=== PATIENT | female | born 1945 | race Two or more races ===

== ENCOUNTER 2018-07-27 20:05 | Inpatient (IN) | payer MEDICARE, MEDICAID ==
[~2018-07-27] VITALS: Ht 154.9 cm; Wt 59.0 kg
[2018-07-27 21:09] LABS: BASOPHILS % 0.4 % (0.0-2.0); EOSINOPHILS % 0.6 % (0.0-5.0); HEMATOCRIT. 27.3 % (36.0-48.0); HEMOGLOBIN. 8.9 g/dL (12.0-16.0); LYMPHOCYTES % 31.7 % (20.0-50.0); MEAN CORPUSCULAR HEMOGLOBIN 23.8 pg (28.0-32.0); MEAN CORPUSCULAR VOLUME 73.2 fL (81.0-99.0); MEAN PLATELET VOLUME 9.1 fl (7.4-10.4); MONOCYTES % 7.9 % (2.0-8.0); NEUTROPHILS % 59.4 % (40.0-76.0); PLATELET 248 x1000/uL (130-400); RED BLOOD CELL COUNT 3.73 mill/uL (4.2-5.4); RED CELL DISTRIBUTION WIDTH 17.4 % (11.6-14.6)
[2018-07-27 21:13] LABS: CHLORIDE 102 mEq/L (98-107)
[2018-07-27 21:19] LABS: ETHANOL BLOOD < 10 mg/dL
[2018-07-27 21:21] LABS: D-DIMER 1.97 mg/L FEU (<0.50); INR 1.1; PARTIAL THROMBOPLASTIN TIME 25.5 sec (23.4-31.0); PROTHROMBIN TIME 11.2 sec (9.1-11.1)
[2018-07-27] MEDS ORDERED: CLONIDINE 0.2MG TABLET PO ONE (21:30)
[2018-07-27] MEDS ORDERED: LORAZEPAM 2MG/ML CPJ IV ONE (21:45)
[2018-07-28 01:00] LABS: CLARITY URINE CLEAR (CLEAR); COLOR URINE YELLOW (YELLOW); KETONES URINE NEGATIVE (NEGATIVE); OCCULT BLOOD URINE NEGATIVE (NEGATIVE); PROTEIN URINE TRACE (NEGATIVE); SPECIFIC GRAVITY URINE 1.009 (1.005-1.030)
[2018-07-28 01:01] LABS: LEUKOCYTE ESTERASE URINE TRACE (NEGATIVE); NITRITE URINE NEGATIVE (NEGATIVE); UROBILINOGEN URINE 0.2 E.U./dL (0.2-1.0)
[2018-07-28 01:23] LABS: *BENZODIAZEPINES SCREEN URINE NEGATIVE (NEGATIVE); *COCAINE SCREEN URINE NEGATIVE (NEGATIVE); CANNABINOID URINE SCREEN NEGATIVE (NEGATIVE); METHADONE URINE SCREEN NEGATIVE (NEGATIVE); OPIATES URINE SCREEN NEGATIVE (NEGATIVE); PHENCYCLIDINE URINE SCREEN NEGATIVE (NEGATIVE)
[2018-07-28 01:24] LABS: *AMPHETAMINES SCREEN URINE NEGATIVE (NEGATIVE); *BARBITURATES SCREEN URINE NEGATIVE (NEGATIVE)
[2018-07-28] MEDS ORDERED: IOHEXOL-350 100 ML BOTTLE ONE (03:40)
[2018-07-28] MEDS ORDERED: DEXTROSE 50% WATER 50ML SYRINGE IV PRN (03:45)
[2018-07-28] MEDS ORDERED: ACETAMINOPHEN 325MG TABLET PO PRN (03:45)
[2018-07-28] MEDS ORDERED: CLONIDINE 0.1MG TABLET PO PRN (03:45)
[2018-07-28] MEDS ORDERED: HYDRALAZINE 20MG/ML VIAL IV PRN (03:45)
[2018-07-28] MEDS ORDERED: MAGNESIUM/ALUMINUM HYDROXIDE/SIMETHICONE 30ML UDC PO PRN (03:45)
[2018-07-28] MEDS ORDERED: ONDANSETRON HCL 4MG/2ML INJ IV PRN (03:45)
[2018-07-28] MEDS ORDERED: SODIUM CHLORIDE 0.9% INJ 3ML FLUSH IVF SCH (06:00)
[2018-07-28] MEDS ORDERED: INSULIN LISPRO 100 UNITS/ML SUBCUT SCH (08:20)
[2018-07-28 09:00] VITALS: BP 146/59
[2018-07-28] MEDS ORDERED: BLOOD SUGAR DIAGNOSTIC STRIP TEST SCH (09:00)
== END 2018-07-28 11:05 | disposition left against medical advice (07) | DRG 203 ==
LOC: ER 20:05 → 5WST 22:12 → EDBEDREQ 22:18 → EDBEDREQTM 22:18 → ENRESERV 07-28 07:05
PROVIDERS: ADMIT Internal Medicine; ATTEND Internal Medicine
DX: R07.9 Chest pain, unspecified (principal); E11.9 Type 2 diabetes mellitus without complications; I10 Essential (primary) hypertension; Z53.21 Procedure and treatment not carried out due to patient leaving prior to being seen by health care provider; Z88.0 Allergy status to penicillin
CPT/HCPCS: 36415; 71045; 71275; 80305; 82962; 83880; 84484; 85379; 93005; 93970; 99285; G0482; Q9967